=== PATIENT | male | born 1985 | race African-American/Black ===

== ENCOUNTER 2016-10-06 18:18 | Emergency (ER) | payer SELFPAY ==
[~2016-10-06] VITALS: Ht 185.4 cm; Wt 108.9 kg
[2016-10-06 19:06] VITALS: BP 135/63
[2016-10-06] MEDS ORDERED: NAPR500T8 PO (19:30)
[2016-10-06] MEDS ORDERED: METH4TAB2 PO (19:30)
--- NOTE | 2016-10-06 19:30 | PHYS DOC ---
Past Medical History Past Medical History: No Pertinent History Past Surgical History: No Surgical History Alcohol Use: None Drug Use: None Adult General Chief Complaint Chief Complaint: WRIST PAIN HPI HPI Patient is a 30-year-old male with no significant medical history who presents today with generalized left wrist pain that began 3 days ago while doing his job at [employer]. Patient denies any known injury but states he lifted a couple heavy items including washing machines/dryers. Patient states he went to his job workman comp office to try and get x-rays of his wrist but they declined to do the x-rays stating he gets arthritis. 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 Review of Systems Review of Systems Constitutional: Denies fever or chills [] Musculoskeletal: Left wrist pain Integument: Denies rash or skin lesions [] Neurologic: Denies headache, focal weakness or sensory changes [] Endocrine: Denies polyuria or polydipsia [] Physical Exam Physical Exam Constitutional: Well developed, well nourished, no acute distress, non-toxic appearance. [] Skin: Warm, dry, no erythema, no rash. [] Back: No tenderness, no CVA tenderness. [] Extremities: Left wrist with no obvious deformity, no obvious edema or ecchymosis, no scaphoid pain or tenderness. Diffuse tenderness on the dorsal aspect of the wrist. Full range of motion to the wrist, adequate flexion and extension of the wrist. +2 left radial pulse. Cap refill less than 2 seconds the left fingers. Adequate ulnar median radial sensation to the left wrist and fingers Neurologic: Alert and oriented X 3, normal motor function, normal sensory function, no focal deficits noted. [] Psychologic: Affect normal, judgement normal, mood normal. [] Current Patient Data Vital Signs Vital Signs Date Time Temp Pulse Resp B/P Pulse Ox O2 Delivery O2 Flow Rate FiO2 10/06/16 19:06 98.2 53 16 97 Room Air 98.2 EKG EKG [] Radiology/Procedures Radiology/Procedures [] Course & Med Decision Making Course & Med Decision Making Pertinent Labs and Imaging studies reviewed. (See chart for details) Patient is in the ED with left wrist pain,he works at [employer] and states he lifted a couple heavy items 3 days ago when the pain began. He unfortunately would not accept any x-rays in the ED because he is afraid he may have to pay for the xrays. I spoke to him about going through his boss and try and get this case taken care of as a workman comp. Patient states his boss will not allow this to be reported as a work-related injury because he does not want to mess up his safety numbers. Patient will be provided a Velcro splint. Ice elevation encouraged. Discharged with naproxen and Medrol Dosepak. Instructed to follow-up with the provided orthopedic doctor or his workman comp doctor for further evaluation. Dragon Disclaimer Dragon Disclaimer This electronic medical record was generated, in whole or in part, using a voice recognition dictation system. Departure Departure Impression: Primary Impression: Wrist pain, acute Disposition: 01 HOME, SELF-CARE Condition: STABLE Referrals: NO PCP (PCP) CORINNE [facility] MD Please follow-up with the provided doctor or your own doctor in one week Patient Instructions: Wrist Pain, [id number] Additional Instructions: You were seen for left wrist pain. We recommended you have x-rays of the wrist to make sure there is no acute findings. You were concerned about the cost of the xray being billed back to you. Please contact your company, try and work to them and see if they'll allow you to have an x-ray or follow-up with an orthopedic doctor. In the meantime ice and elevate the extremity. Take the prescribed medicines as ordered. Scripts Methylprednisolone (Medrol)4 Mg Tab.ds.pk1 Pkg PO UD #1 PKG Prov:VERONICA WITT AMOS 10/06/16 Naproxen 500 Mg Tablet.dr1 Tab PO BID #60 TAB Ref 2 Prov:VERONICA WITT AMOS 10/06/16 Problem Qualifiers Primary Impression: Wrist pain, acute Laterality: left Qualified Code: M25.532 - Pain in left wrist VERONICA WITT AMOS Oct 06, 2016 19:30
== END 2016-10-06 19:50 | disposition home or self-care (01) ==
LOC: ER 18:18
DX: M25.532 Pain in left wrist (principal)
CPT/HCPCS: 29125; 99283-25